=== PATIENT | female | born 1975 | race Asian ===

== ENCOUNTER 2020-07-08 00:32 | Emergency (ER) | payer OTHER, BC ==
[~2020-07-08] VITALS: Ht 152.4 cm; Wt 61.2 kg
[~2020-07-08 00:32] MED LIST: LEVO500T59 PO; TRAM50TA PO
[2020-07-08 00:45] VITALS: BP 126/74
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
== END 2020-07-08 01:20 | disposition home or self-care (01) ==
LOC: ER 00:32
DX: S00.83XA Contusion of other part of head, initial encounter (principal); Z98.51 Tubal ligation status; Z87.891 Personal history of nicotine dependence; V49.9XXA Car occupant (driver) (passenger) injured in unspecified traffic accident, initial encounter; Y93.89 Activity, other specified; Y92.413 State road as the place of occurrence of the external cause; Y99.8 Other external cause status
CPT/HCPCS: 99281